=== PATIENT | male | born 1965 | race Caucasian/White ===

== ENCOUNTER 2023-03-05 10:37 | Observation (INO) | payer OTHER, SELFPAY ==
[2023-03-05] VITALS (12 sets, daily range): BP systolic 90–115; BP diastolic 53–85; PULSE 60–81; RESP 17–21; TEMP 35.9–37.1; O2SAT 93–96; BMI 31.0; BMI 31.2
--- NOTE | ~2023-03-05 | CT_ITS ---
EXAMINATION: CT CHEST, ABDOMEN AND PELVIS WITHOUT CONTRAST CLINICAL INFORMATION: Status post fall with chest pain and abdominal pain. COMPARISON: Chest radiographs 03/05/2023 TECHNIQUE: Multidetector volumetric imaging was performed of the chest, abdomen and pelvis. Sagittal and coronal reformatted images were obtained on the technologist's workstation. This CT examination was performed using dose optimization techniques as appropriate, variously including the following: *Automated exposure control *Adjustment of mA and/or kV according to patient size (this includes techniques or standardized protocols for targeted exams where dose is matched to indication/reason for exam; i.e. extremities or head) *Use of iterative reconstruction technique DLP: 427 mGy-cm FINDINGS: CHEST: CHEST WALL: No acute abnormality. AXILLA: No axillary lymphadenopathy. MEDIASTINUM: Enlarged heterogeneous thyroid gland. No bulky hilar or mediastinal lymphadenopathy. Great vessels are of normal caliber. Heart size is normal. No pericardial effusion. CORONARY ARTERY CALCIFICATION: Moderate. PLEURA: Small right pleural effusion. No pneumothorax. LUNGS: No suspicious pulmonary nodule. Mild diffuse bronchiectasis and bronchial wall thickening. Scarring versus atelectasis in the right lower lobe and right middle lobe. ABDOMEN AND PELVIS: ABDOMINAL AND PELVIC WALL: No acute abnormality. LIVER AND BILIARY TREE: The liver is diffusely decreased in attenuation. The liver measures 21.1 cm in sagittal dimension. No focal hepatic lesion. No biliary duct dilatation. GALLBLADDER: Gallstones. PANCREAS: No ductal dilatation. SPLEEN: Not enlarged. ADRENAL GLANDS: 1.6 cm left adrenal nodules most likely representing adenomas. KIDNEYS AND URETERS: The kidneys are symmetric in size. No renal or ureteral calculus. No hydronephrosis. GASTROINTESTINAL TRACT: Small and large bowel loops are of normal caliber. No small bowel obstruction. Diverticular disease of the sigmoid colon. VASCULAR: Normal caliber abdominal aorta. LYMPH NODES: No bulky abdominal or pelvic lymphadenopathy. FREE FLUID: No free fluid. BLADDER: Unremarkable. PELVIC VISCERA: Unremarkable. OSSEOUS STRUCTURES: Anterior wedging of lower thoracic spine vertebral bodies. CT/CT abdomen pelvis wo IV con IMPRESSION: Right middle lobe and right lower lobe scarring versus atelectasis. No pneumothorax. Small right pleural effusion. Hepatomegaly and hepatic steatosis. Left adrenal adenomas. Cholelithiasis.
--- NOTE | ~2023-03-05 | CT_ITS ---
EXAMINATION: CT HEAD WITHOUT CONTRAST CLINICAL INFORMATION: Syncope. COMPARISON: None available. TECHNIQUE: Contiguous axial imaging was performed from the skull base to vertex without intravenous administration of contrast. This CT examination was performed using dose optimization techniques as appropriate, variously including the following: *Automated exposure control *Adjustment of mA and/or kV according to patient size (this includes techniques or standardized protocols for targeted exams where dose is matched to indication/reason for exam; i.e. extremities or head) *Use of iterative reconstruction technique DLP: 794 mGy-cm FINDINGS: There is no evidence of acute intracranial hemorrhage or large territorial infarction. No mass effect or midline shift is seen. No extra-axial fluid collections are identified. No hydrocephalus. The calvarium is intact. Under pneumatization of the right mastoid. Air-fluid level in the right maxillary sinus. Right maxillary sinus mucosal thickening. Mucoperiosteal thickening of the ethmoid air cells. CT/CT head/brain wo IV con IMPRESSION: No acute intracranial pathology. Acute right maxillary sinusitis.
--- NOTE | ~2023-03-05 | XR_ITS ---
EXAMINATION: XR CHEST CLINICAL INFORMATION: Syncope. COMPARISON: 06/30/2006 TECHNIQUE: 2 views of the chest were obtained. FINDINGS: The left hemithorax is clear. There is scarring versus atelectasis at the right lung base. There is increased lucency at the right lung base with small right pleural effusion. XR/XR chest 2V IMPRESSION: Possible small right basilar hydropneumothorax. Consider noncontrast chest CT for further evaluation.
[2023-03-05 10:47] LABS: Glucose, Whole Blood 177 mg/dL (60-115)
--- NOTE | 2023-03-05 10:48 | ECG_ITS ---
Test Reason : syncope Blood Pressure : / mmHG Vent. Rate : 080 BPM Atrial Rate : 080 BPM P-R Int : 130 ms QRS Dur : 104 ms QT Int : 376 ms P-R-T Axes : 039 071 072 degrees QTc Int : 433 ms Normal sinus rhythm Normal ECG No previous ECGs available Referred By: Generic ED Physician Electronically Signed By:Dany Dunne
[2023-03-05 11:06] LABS: MANUAL DIFF FLAG NO
[2023-03-05 11:08] LABS: Basophils Absolute Auto 0.1 X10*3/uL (0.0-0.2); Basophils Percent Auto 1.2 % (0-2); Eosinophils Percent Auto 0.1 % (0-4); Hematocrit 42.8 % (42.0-52.0); Imm Gran Abs Auto 0.01 X10*3/uL (0.00-0.03); Imm Gran Pct Auto 0.1 % (0.0-0.4); Lymphocytes Absolute Auto 0.6 X10*3/uL (1.2-4.9); Lymphocytes Percent Auto 8.9 % (20-40); Mean Corpuscular HGB Conc 32.7 g/dl (31.0-36.0); Mean Corpuscular Hemoglobin 28.2 pg (27.0-33.0); Mean Corpuscular Volume 86.3 fL (80.0-98.0); Monocytes Absolute Auto 0.7 X10*3/uL (0.1-1.2); Monocytes Percent Auto 9.8 % (2-11); Neutrophils Absolute Auto 5.4 x10*3/uL (2.0-8.3); Neutrophils Percent Auto 79.9 % (45-73); Platelet Count 237 X10*3/uL (160-400); Red Blood Count 4.96 X10*6/uL (4.60-5.80); Red Cell Distribution Width 13.6 % (11.0-16.0); White Blood Count 6.7 X10*3/uL (4.8-10.8)
[2023-03-05 11:20] LABS: Anion Gap 15 (12-20); Blood Urea Nitrogen 33 mg/dL (9-16); Carbon Dioxide 19 mmol/L (22-29); Chloride 102 mmol/L (96-108); Creatinine Clr Calc Pharmacy 53.7; Estimated Glomerular Filt Rate 38; Glucose Random 178 mg/dL (60-115); Potassium 3.7 mmol/L (3.3-5.1); Sodium 132 mmol/L (135-145)
[2023-03-05 11:29] LABS: Troponin-I High Sensitivity 8.1 ng/L (<3.5-35.0)
--- NOTE | 2023-03-05 11:52 | ED_ITS ---
HPI - General Adult General Chief complaint: Syncope Stated complaint: syncope Time Seen by Provider: 03/05/23 11:51 Source: patient Mode of arrival: ambulatory Limitations: no limitations History of Present Illness HPI narrative: Patient is a 58 year old assigned male at with a history of asthma and diabetes presenting to the emergency department today with back pain after multiple syncopal episodes. Patient states that he passed out multiple times over the course of approximately 1 hour this morning. Patient states that he does not remember each time he fell but he knows he hit his head. Patient states that this has never happened before. Patient states that his landlord has COVID- 19 and he has been around his landlord.. Patient denies any dizziness, lightheadedness, abdominal pain, nausea, vomiting, fever, chills, blurry vision, double vision, loss of vision, chest pain, difficulty breathing, shortness of breath, back pain, night sweats, pain with urination, increased urinary frequency, increased urinary urgency, blood in his urine or stool, bowel incontinence, bladder incontinence, bowel retention, bladder retention, or any other complaints at this time. Onset (ago): hour(s) Location: back Radiation: non-radiation Severity: mild Severity scale (1-10): 3 Quality: aching and constant Pain Consistency: constant Relieving factors: rest Exacerbating factors: movement Associated symptoms: syncope Treatments prior to arrival: none Related Data Home Medications Medication Instructions Recorded Confirmed albuterol sulfate 90 mcg/actuation 2 puff inhalation Q4H PRN 03/05/23 03/05/23 aerosol inhaler Shortness Of Breath Or Wheezing amlodipine 5 mg tablet 5 mg PO DAILY@0 03/05/23 03/05/23 chlorthalidone 25 mg tablet 25 mg PO DAILY 03/05/23 03/05/23 fluticasone propionate 50 1 spray intranasal DAILY PRN 03/05/23 03/05/23 mcg/actuation nasal Allergy Symptoms spray,suspension lisinopril 20 mg tablet 20 mg PO DAILY@0 03/05/23 03/05/23 melatonin 10 mg tablet 10 mg PO BEDTIME 03/05/23 03/05/23 metformin 500 mg tablet,extended 1,000 mg PO BID 03/05/23 03/05/23 release 24 hr Allergies Allergy/AdvReac Type Severity Reaction Status Date / Time perfume AdvReac Hives Verified 03/05/23 10:39 Review of Systems Constitutional: Constitutional: Reports no additional constitutional complaints, Denies chills, Denies fever(s) and Denies night sweats Eyes: Eyes: Reports no additional eye complaints, Denies blurry vision, Denies change in vision, Denies diplopia, Denies eye discharge, Denies loss of vision and Denies eye pain ENT: Reports dizziness Cardiovascular: Cardiovascular: Reports no additional cardiovascular complaints, Denies chest pain, Reports syncope, Denies lightheadedness, Denies Loss of Consciousness and Denies dyspnea Respiratory: Respiratory: Reports cough and Denies dyspnea Gastrointestinal: Gastrointestinal: Reports no additional gastrointestinal complaints, Denies abdominal pain, Denies melena, Denies hematochezia, Denies c hange in bowel habits and Denies change in stool character Genitourinary: Genitourinary: Reports no additional male genitourinary complaints, Denies hematuria, Denies oliguria, Denies difficulty urinating, Denies dysuria, Denies urinary frequency, Denies urinary hesitancy, Denies urinary incontinence and Denies urinary urgency Musculoskeletal: Musculoskeletal: Reports no additional musculoskeletal complaints, Reports back pain, Denies numbness and Denies tingling Neurologic: Reports dizziness, Reports syncope, Denies loss of vision, Denies numbness and Denies tingling Psychiatric: Psychiatric: Reports no additional psychiatric complaints Endocrine: Endocrine: Reports no additional endocrine complaints Hematologic/Lymphatic: Hematologic/Lymphatic: Reports no additional hematologic/lymphatic complaints Allergic/Immunologic: Allergic/Immunologic: Reports no additional allergic/immunologic complaints [facility] Past Medical History Attestation statement: The following information was validated with the patient. Source: old records reviewed and nursing notes reviewed Medical History Asthma Diabetes Social History Social History Smoked in Last 30 Days: Yes Use of substances other than those prescribed or required for medical reasons: No Advance Directives: No Physical Exam ED Vital Signs: Vital Signs - 24 hr 03/05/23 10:40 03/05/23 12:04 03/05/23 12:54 Temperature 96.6 F L 98.4 F Pulse Rate 81 73 Respiratory Rate 18 17 Blood Pressure 101/53 L 115/61 Pulse Oximetry 95 94 93 Oxygen Delivery Method Room Air Room Air Room Air 03/05/23 14:17 03/05/23 14:49 03/05/23 14:50 Temperature Pulse Rate 70 61 61 Respiratory Rate 21 H Blood Pressure 90/56 L 91/56 L 97/59 L Pulse Oximetry 95 Oxygen Delivery Method Room Air 03/05/23 14:51 03/05/23 14:53 03/05/23 15:36 Temperature Pulse Rate 77 61 Respiratory Rate 19 Blood Pressure 94/58 L 91/56 L 105/85 Pulse Oximetry 96 Oxygen Delivery Method Room Air BMI result Body Mass Index 31.0 Const General: cooperative, no acute distress, alert and awake Nutritional Appearance: well nourished Orientation/consciousness: patient oriented x3 Limitations: no limitations HENMT Head: Yes normal to inspection and Yes atraumatic Ears: hearing grossly normal bilaterally and external ears normal General nose exam: Normal external nose present, no nasal discharge noted and no epistaxis Face and sinus: Yes normal facial exam, No abrasion and No laceration Mouth: Normal oral and palatal mucosa present, no drooling and no muffled voice Eyes General: appearance normal, both eyes and all related structures Periorbital: periorbital findings normal Eyelids: Yes eyelids normal Conjunctivae: conjunctivae normal Pupils: Equal, round and reactive pupils present EOM: EOMs intact bilaterally Neck Neck: Yes normal visual inspection, Yes full ROM and Yes no lymphadenopathy Chest Chest palpation & inspection: normal inspection of the chest Resp Effort & Inspection: normal respiratory effort and able to speak in complete sentences Auscultation: clear to auscultation bilaterally Cardio Rate: regular rate Rhythm: regular rhythm GI Inspection: Yes normal to inspection Palpation (GI): Soft to palpation, not firm, nontender and no guarding Back/Spine/Pelvis Back: back tenderness Cervical Spine: cervical ROM normal and No pain with cervical ROM Thoracic/Lumbar Spine: thoracic and lumbar spine normal to inspection and paraspinal muscle tenderness bilaterally in the mid thoracic Skin Lesions: lesion noted Trauma: abrasion (right 3rd finger, right elbow and top of head) Neuro General: patient oriented x3 and moves all extremities Cranial nerves: Yes Equal, round and reactive pupils present Cognition (Neuro): normal cognition Motor exam (neuro): 5/5 motor strength present throughout Sensory Exam: Normal double simultaneous stimulation for sensation Coordination: [id number] test normal Extrem General: Yes normal to inspection, Yes full ROM and Yes capillary refill normal Psych Appearance: grossly normal Mental Status: mental status grossly normal Affect: normal affect Attitude: cooperative Thought process: Normal thought process present Thought content: Normal thought content present Insight: Good insight present (Psych) Medications Administered Discontinued Medications Generic Name Dose Route Start Last Admin Trade Name Deric PRN Reason Stop Dose Admin Acetaminophen 650 mg 03/05/23 13:01 03/05/23 13:36 Acetaminophen 325 Mg Tablet PO 03/05/23 13:02 650 mg ONCE ONE Administration Sodium Chloride 1,000 mls @ 999 mls/hr 03/05/23 14:45 03/05/23 15:47 Ns IV 03/05/23 15:45 Infused .Q1H1M HEATHER Infusion Medical Decision Making Medical Decision Making [facility] Narrative: Patient is a 58 year old assigned male at with a history of asthma and diabetes presenting to the emergency department today with back pain after multiple syncopal episodes. Patient's physical exam was as noted in the physical exam portion of this chart. Patient's blood work showed a sodium of 132, BUN 33, and a CR of 1.82. The rest of the patient's lab results are grossly normal. Patient's EKG was unremarkable. Patient's chest x-ray showed a possible small right basilar hydropneumothorax. Radiologist recommended CT chest. CT chest showed no acute process. Patient's CT abdomen/pelvis showed no acute process. Patient's head CT showed evidence of sinusitis, patient confirmed that he is aware of this and uses nasal spray. I spoke to the hospitalist who agreed to admission. Patient was given IV fluids while in the department. I explained my physical exam findings as well as all test results to the patient. I answered all questions asked by the patient. Patient verbalized agreement and understanding with this treatment plan and admission. Differential Diagnosis Differential Diagnoses: The differential diagnosis associated with the presentation includes Orthostatic hypotension STEMI NSTEMI Syncope Back pain Fall Acute kidney injury Electrolyte abnormality Arrhythmia Admission/Observation Consideration of admission/observation: Escalation of care including admission/observation considered Patient admitted. Consult Healthcare Provider Management of the patient was discussed with: Hospitalist (agreed to admission.) Lab Data [facility] Lab Attestation statement: I reviewed the patient's lab results. My interpretation of these results are in the MDM portion of this chart. 03/05/23 10:58 03/05/23 10:58 Labs: Lab Results 03/05/23 03/05/23 03/05/23 Range/Units 10:43 10:58 10:58 WBC 6.7 (4.8-10.8) X10*3/uL RBC 4.96 (4.60-5.80) X10*6/uL Hgb 14.0 (14.0-18.0) g/dl Hct 42.8 (42.0-52.0) % MCV 86.3 (80.0-98.0) fL MCH 28.2 (27.0-33.0) pg MCHC 32.7 (31.0-36.0) g/dl RDW 13.6 (11.0-16.0) % Plt Count 237 (160-400) X10*3/uL MPV 11.0 (9.4-12.4) fL Immature Gran % (Auto) 0.1 (0.0-0.4) % Neut % (Auto) 79.9 H (45-73) % Lymph % (Auto) 8.9 L (20-40) % [place] % (Auto) 9.8 (2-11) % Eos % (Auto) 0.1 (0-4) % Baso % (Auto) 1.2 (0-2) % Lymph # (Auto) 0.6 L (1.2-4.9) X10*3/uL [place] # (Auto) 0.7 (0.1-1.2) X10*3/uL Eos # (Auto) 0.0 (0.0-0.4) X10*3/uL Baso # (Auto) 0.1 (0.0-0.2) X10*3/uL Abs Immat Gran (auto) 0.01 (0.00-0.03) X10*3/uL Absolute Neuts (auto) 5.4 (2.0-8.3) x10*3/uL Absolute Nucleated RBC 0.000 (0.0-0.012) X10*3/uL Nucleated RBC % (auto) 0.0 (0.0-0.2) /100WBC Sodium 132 L (135-145) mmol/L Potassium 3.7 (3.3-5.1) mmol/L Chloride 102 (96-108) mmol/L Carbon Dioxide 19 L (22-29) mmol/L Anion Gap 15 (12-20) BUN 33 H (9-16) mg/dL Creatinine 1.82 H (0.5-1.4) mg/dL Estim Creat Clear Calc 53.7 Estimated GFR 38 POC Glucose 177 H (60-115) mg/dL Random Glucose 178 H (60-115) mg/dL Calcium 9.0 (8.4-10.2) mg/dL Magnesium 1.9 (1.6-2.6) mg/dL Total Bilirubin 0.4 (0.0-1.0) mg/dL Direct Bilirubin 0.2 (0.0-0.5) mg/dL AST 29 (5-37) U/L ALT 29 (0-40) U/L Alkaline Phosphatase 69 (39-117) U/L Troponin I High Sens (<3.5-35.0) ng/L B-Natriuretic Peptide (<100) pg/mL Total Protein 7.2 (6.5-8.0) g/dL Albumin 3.9 (3.5-5.0) g/dL COVID-19 (JIMI) (Negative) COVID-19 Clin Com 03/05/23 03/05/23 03/05/23 Range/Units 10:58 10:58 13:08 WBC (4.8-10.8) X10*3/uL RBC (4.60-5.80) X10*6/uL Hgb (14.0-18.0) g/dl Hct (42.0-52.0) % MCV (80.0-98.0) fL MCH (27.0-33.0) pg MCHC (31.0-36.0) g/dl RDW (11.0-16.0) % Plt Count (160-400) X10*3/uL MPV (9.4-12.4) fL Immature Gran % (Auto) (0.0-0.4) % Neut % (Auto) (45-73) % Lymph % (Auto) (20-40) % [place] % (Auto) (2-11) % Eos % (Auto) (0-4) % Baso % (Auto) (0-2) % Lymph # (Auto) (1.2-4.9) X10*3/uL [place] # (Auto) (0.1-1.2) X10*3/uL Eos # (Auto) (0.0-0.4) X10*3/uL Baso # (Auto) (0.0-0.2) X10*3/uL Abs Immat Gran (auto) (0.00-0.03) X10*3/uL Absolute Neuts (auto) (2.0-8.3) x10*3/uL Absolute Nucleated RBC (0.0-0.012) X10*3/uL Nucleated RBC % (auto) (0.0-0.2) /100WBC Sodium (135-145) mmol/L Potassium (3.3-5.1) mmol/L Chloride (96-108) mmol/L Carbon Dioxide (22-29) mmol/L Anion Gap (12-20) BUN (9-16) mg/dL Creatinine (0.5-1.4) mg/dL Estim Creat Clear Calc Estimated GFR POC Glucose (60-115) mg/dL Random Glucose (60-115) mg/dL Calcium (8.4-10.2) mg/dL Magnesium (1.6-2.6) mg/dL Total Bilirubin (0.0-1.0) mg/dL Direct Bilirubin (0.0-0.5) mg/dL AST (5-37) U/L ALT (0-40) U/L Alkaline Phosphatase (39-117) U/L Troponin I High Sens 8.1 9.1 (<3.5-35.0) ng/L B-Natriuretic Peptide (<100) pg/mL Total Protein (6.5-8.0) g/dL Albumin (3.5-5.0) g/dL COVID-19 (JIMI) Negative (Negative) COVID-19 Clin Com See Note 03/05/23 Range/Units 13:08 WBC (4.8-10.8) X10*3/uL RBC (4.60-5.80) X10*6/uL Hgb (14.0-18.0) g/dl Hct (42.0-52.0) % MCV (80.0-98.0) fL MCH (27.0-33.0) pg MCHC (31.0-36.0) g/dl RDW (11.0-16.0) % Plt Count (160-400) X10*3/uL MPV (9.4-12.4) fL Immature Gran % (Auto) (0.0-0.4) % Neut % (Auto) (45-73) % Lymph % (Auto) (20-40) % [place] % (Auto) (2-11) % Eos % (Auto) (0-4) % Baso % (Auto) (0-2) % Lymph # (Auto) (1.2-4.9) X10*3/uL [place] # (Auto) (0.1-1.2) X10*3/uL Eos # (Auto) (0.0-0.4) X10*3/uL Baso # (Auto) (0.0-0.2) X10*3/uL Abs Immat Gran (auto) (0.00-0.03) X10*3/uL Absolute Neuts (auto) (2.0-8.3) x10*3/uL Absolute Nucleated RBC (0.0-0.012) X10*3/uL Nucleated RBC % (auto) (0.0-0.2) /100WBC Sodium (135-145) mmol/L Potassium (3.3-5.1) mmol/L Chloride (96-108) mmol/L Carbon Dioxide (22-29) mmol/L Anion Gap (12-20) BUN (9-16) mg/dL Creatinine (0.5-1.4) mg/dL Estim Creat Clear Calc Estimated GFR POC Glucose (60-115) mg/dL Random Glucose (60-115) mg/dL Calcium (8.4-10.2) mg/dL Magnesium (1.6-2.6) mg/dL Total Bilirubin (0.0-1.0) mg/dL Direct Bilirubin (0.0-0.5) mg/dL AST (5-37) U/L ALT (0-40) U/L Alkaline Phosphatase (39-117) U/L Troponin I High Sens (<3.5-35.0) ng/L B-Natriuretic Peptide 55 (<100) pg/mL Total Protein (6.5-8.0) g/dL Albumin (3.5-5.0) g/dL COVID-19 (JIMI) (Negative) COVID-19 Clin Com Independent Interpretation I performed an independent interpretation of an: EKG, Plain X-Ray and CT Scan Interpretation: My interpretation is in agreement with the radiologist's impression of these imaging studies. EXAMINATION: XR CHEST CLINICAL INFORMATION: Syncope. COMPARISON: 06/30/2006 TECHNIQUE: 2 views of the chest were obtained. FINDINGS: The left hemithorax is clear. There is scarring versus atelectasis at the right lung base. There is increased lucency at the right lung base with small right pleural effusion. XR/XR chest 2V IMPRESSION: Possible small right basilar hydropneumothorax. Consider noncontrast chest CT for further evaluation. Dictated By: Carmen Chow MD Signed By: Electronically signed by Carmen Chow MD 03/05/23 1253 EXAMINATION: CT HEAD WITHOUT CONTRAST CLINICAL INFORMATION: Syncope.? COMPARISON: None available. TECHNIQUE: Contiguous axial imaging was performed from the skull base to vertex without intravenous administration of contrast. This CT examination was performed using dose optimization techniques as appropriate, variously including the following: *Automated exposure control *Adjustment of mA and/or kV according to patient size (this includes techniques or standardized protocols for targeted exams where dose is matched to indication/reason for exam; i.e. extremities or head) *Use of iterative reconstruction technique DLP: 794 mGy-cm FINDINGS: There is no evidence of acute intracranial hemorrhage or large territorial infarction. No mass effect or midline shift is seen. No extra-axial fluid collections are identified. No hydrocephalus. The calvarium is intact. Under pneumatization of the right mastoid. Air-fluid level in the right maxillary sinus. Right maxillary sinus mucosal thickening. Mucoperiosteal thickening of the ethmoid air cells. ? CT/CT head/brain wo IV con IMPRESSION: No acute intracranial pathology. Acute right maxillary sinusitis. Dictated By: Carmen Chow MD Signed By: Electronically signed by Carmen Chow MD 03/05/23 1302 EXAMINATION: CT CHEST, ABDOMEN AND PELVIS WITHOUT CONTRAST CLINICAL INFORMATION: Status post fall with chest pain and abdominal pain. COMPARISON: Chest radiographs 03/05/2023 TECHNIQUE: Multidetector volumetric imaging was performed of the chest, abdomen and pelvis. Sagittal and coronal reformatted images were obtained on the technologist's workstation. This CT examination was performed using dose optimization techniques as appropriate, variously including the following: *Automated exposure control *Adjustment of mA and/or kV according to patient size (this includes techniques or standardized protocols for targeted exams where dose is matched to indication/reason for exam; i.e. extremities or head) *Use of iterative reconstruction technique DLP: 427 mGy-cm FINDINGS: CHEST: CHEST WALL: No acute abnormality. AXILLA: No axillary lymphadenopathy.? MEDIASTINUM: Enlarged heterogeneous thyroid gland. No bulky hilar or mediastinal lymphadenopathy. Great vessels are of normal caliber. Heart size is normal. No pericardial effusion. CORONARY ARTERY CALCIFICATION: Moderate. PLEURA: Small right pleural effusion. No pneumothorax. LUNGS: No suspicious pulmonary nodule. Mild diffuse bronchiectasis and bronchial wall thickening. Scarring versus atelectasis in the right lower lobe and right middle lobe. ABDOMEN AND PELVIS: ABDOMINAL AND PELVIC WALL: No acute abnormality. LIVER AND BILIARY TREE: The liver is diffusely decreased in attenuation. The liver measures 21.1 cm in sagittal dimension. No focal hepatic lesion. No biliary duct dilatation.? GALLBLADDER: Gallstones. PANCREAS: No ductal dilatation. SPLEEN: Not enlarged. ADRENAL GLANDS: 1.6 cm left adrenal nodules most likely representing adenomas. KIDNEYS AND URETERS: The kidneys are symmetric in size. No renal or ureteral calculus. No hydronephrosis. GASTROINTESTINAL TRACT: Small and large bowel loops are of normal caliber. No small bowel obstruction. Diverticular disease of the sigmoid colon. VASCULAR: Normal caliber abdominal aorta. LYMPH NODES: No bulky abdominal or pelvic lymphadenopathy. FREE FLUID: No free fluid. BLADDER: Unremarkable.? PELVIC VISCERA: Unremarkable. OSSEOUS STRUCTURES: Anterior wedging of lower thoracic spine vertebral bodies. CT/CT abdomen pelvis wo IV con IMPRESSION: ? Right middle lobe and right lower lobe scarring versus atelectasis. No pneumothorax. Small right pleural effusion. ? Hepatomegaly and hepatic steatosis. ? Left adrenal adenomas. ? Cholelithiasis. Dictated By: Carmen Chow MD Signed By: Electronically signed by Carmen Chow MD 03/05/23 1428 Vent. Rate: 080 BPM ? ? Atrial Rate: 080 BPM P-R Int: 130 ms? QRS Dur: 104 ms QT Int: 376 ms ? ? ? P-R-T Axes: 039 071 072 degrees QTc Int: 433 ms ? Normal sinus rhythm Normal ECG No previous ECGs available DD/ 1045 Radiology Impression Discussion of test interpretation with radiology: I have reviewed the radiologist's reading. Chronic Conditions Patient?s care impacted by: Diabetes and Other (asthma) Critical Care Time Critical Care Time Critical Care Time: Yes Total Critical Care Time: 45 Attestation: I spent 45 minutes of Critical Care Time with this patient. This does not include time spent on separately reported billable procedures. Discharge Plan Discharge Patient Disposition: Admitted As Inpatient Prescriptions: No Action lisinopril 20 mg tablet 20 mg PO DAILY@1700 chlorthalidone 25 mg tablet 25 mg PO DAILY amlodipine 5 mg tablet 5 mg PO DAILY@1700 albuterol sulfate 90 mcg/actuation HFA aerosol inhaler 2 puff inhalation Q4H PRN (Reason: Shortness Of Breath Or Wheezing) fluticasone propionate 50 mcg/actuation spray,suspension 1 spray intranasal DAILY PRN (Reason: Allergy Symptoms) metformin 500 mg tablet extended release 24 hr 1,000 mg PO BID melatonin 10 mg Tablet 10 mg PO BEDTIME
[2023-03-05 12:05] LABS: COVID-19 Test Negative (Negative); IDNOW Serial# BCCEAD1C
--- NOTE | 2023-03-05 13:16 | PC.NURSE ---
Addendum entered by Ton Urbano 03/05/23 13:59: lung sounds clear to auscultation; sats 98% RA. no bruising/abrasions noted upon exam. Original Note: pt axox4, VSS, respirations even and unlabored, NSR on monitor 76 bpm, sats 93-95% RA. pt here for 4x episodes syncope today onset 1000; witnessed by friend; denies headstrike; c/o dizziness and mid back pain following syncope episodes. labs drawn; iv established; awaiting imaging. pt denies questions/concerns at this time, call golden within reach.
[2023-03-05] MEDS: Acetaminophen 325 MG TABLET 650 MG PO (13:36)
[2023-03-05 13:38] LABS: B Type Natriuretic Peptide 55 pg/mL (<100)
[2023-03-05 13:50] LABS: Alanine Aminotransferase 29 U/L (0-40); Albumin Level 3.9 g/dL (3.5-5.0); Alkaline Phosphatase 69 U/L (39-117); Aspartate Amino Transferase 29 U/L (5-37); Bilirubin Direct 0.2 mg/dL (0.0-0.5); Bilirubin Total 0.4 mg/dL (0.0-1.0); Magnesium 1.9 mg/dL (1.6-2.6); Total Protein 7.2 g/dL (6.5-8.0)
[2023-03-05 13:58] LABS: Troponin-I High Sensitivity 9.1 ng/L (<3.5-35.0)
[2023-03-05] MEDS: 0.9 % Sodium Chloride 1,000 ML 999 ML IV (14:46)
--- NOTE | 2023-03-05 15:10 | PHA.MEDREC ---
Pharmacy Consult ? Medication Reconciliation Pharmacy has completed the medication reconciliation. Spoke to patient to confirm meds.
--- NOTE | 2023-03-05 15:35 | PC.NURSE ---
pt noted to be hypotensive; asymptomatic; pierce downey aware. new order fluids infusing. bp improving.
--- NOTE | 2023-03-05 15:58 | PM.IMHP ---
History of Present Illness Date of Service: 03/05/23 Chief Complaint: Syncope 58M PMH hypertension, obesity, COPD, diabetes presented with syncope. 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 Patient denies chest pain, fever, chills. Review of Systems Review of Systems: Yes all other systems are reviewed and are negative [facility], [facility] Medical History Asthma Diabetes Social History Smoked in Last 30 Days: Yes Use of substances other than those prescribed or required for medical reasons: No Advance Directives: No Meds Allergies Allergy/AdvReac Type Severity Reaction Status Date / Time perfume AdvReac Hives Verified 03/05/23 10:39 Active Medications: Current Medications Albuterol Sulfate (Albuterol Sulfate 90 Mcg 8 Gm Inhaler) 2 puff INHALE Q4H PRN PRN Reason: Shortness Of Breath Or Wheezing Lactated Ringer's (Lr) 1,000 mls @ 100 mls/hr IVCONT .Q10H [facility] Non-Formulary Medication (Melatonin) 10 mg PO BEDTIME [facility] Pharmacy Consult (Consult Rx Perform Med Rec) 1 each MISCELLANE ONCE PRN PRN Reason: Consult order Home Medications Medication Instructions Recorded Confirmed Last Taken Type albuterol sulfate 90 mcg/actuation 2 puff inhalation Q4H PRN 03/05/23 03/05/23 Unknown History aerosol inhaler Shortness Of Breath Or Wheezing amlodipine 5 mg tablet 5 mg PO DAILY@1700 03/05/23 03/05/23 03/04/23 History chlorthalidone 25 mg tablet 25 mg PO DAILY 03/05/23 03/05/23 03/05/23 09:00 History fluticasone propionate 50 1 spray intranasal DAILY PRN 03/05/23 03/05/23 Unknown History mcg/actuation nasal Allergy Symptoms spray,suspension lisinopril 20 mg tablet 20 mg PO DAILY@1700 03/05/23 03/05/23 03/04/23 History melatonin 10 mg tablet 10 mg PO BEDTIME 03/05/23 03/05/23 03/04/23 History metformin 500 mg tablet,extended 1,000 mg PO BID 03/05/23 03/05/23 03/05/23 09:00 History release 24 hr Physical Exam Vital Signs and Narrative: Vital Signs: Last Vital Signs Temp 98.4 F 03/05/23 12:04 Pulse 61 03/05/23 14:53 Resp 19 03/05/23 14:53 BP 105/85 03/05/23 15:36 Pulse Ox 96 03/05/23 14:53 O2 Del Method Room Air 03/05/23 14:53 BMI result Body Mass Index 31.0 General: AO X 3, no acute distress Resp: CTA bilateral, no accessory muscles used CVS: S1,S2,RRR GI: soft, non tender, non distended Neuro: motor grossly intact, alert Psych: appropriate affect, appropriate insight Results Labs 03/05/23 10:58 03/05/23 10:58 Labs: Laboratory Results - last 24 hr 03/05/23 03/05/23 03/05/23 10:43 10:58 10:58 MCV 86.3 MCH 28.2 MCHC 32.7 RDW 13.6 Plt Count 237 MPV 11.0 Immature Gran % (Auto) 0.1 Neut % (Auto) 79.9 H Lymph % (Auto) 8.9 L [place] % (Auto) 9.8 Eos % (Auto) 0.1 Baso % (Auto) 1.2 Lymph # (Auto) 0.6 L [place] # (Auto) 0.7 Eos # (Auto) 0.0 Baso # (Auto) 0.1 Abs Immat Gran (auto) 0.01 Absolute Neuts (auto) 5.4 Absolute Nucleated RBC 0.000 Nucleated RBC % (auto) 0.0 Anion Gap 15 Estim Creat Clear Calc 53.7 Estimated GFR 38 POC Glucose 177 H Random Glucose 178 H Calcium 9.0 Magnesium 1.9 Total Bilirubin 0.4 Direct Bilirubin 0.2 AST 29 ALT 29 Alkaline Phosphatase 69 Troponin I High Sens B-Natriuretic Peptide Total Protein 7.2 Albumin 3.9 COVID-19 (JIMI) COVID-19 Clin Com 03/05/23 03/05/23 03/05/23 10:58 10:58 13:08 MCV MCH MCHC RDW Plt Count MPV Immature Gran % (Auto) Neut % (Auto) Lymph % (Auto) [place] % (Auto) Eos % (Auto) Baso % (Auto) Lymph # (Auto) [place] # (Auto) Eos # (Auto) Baso # (Auto) Abs Immat Gran (auto) Absolute Neuts (auto) Absolute Nucleated RBC Nucleated RBC % (auto) Anion Gap Estim Creat Clear Calc Estimated GFR POC Glucose Random Glucose Calcium Magnesium Total Bilirubin Direct Bilirubin AST ALT Alkaline Phosphatase Troponin I High Sens 8.1 9.1 B-Natriuretic Peptide Total Protein Albumin COVID-19 (JIMI) Negative COVID-19 Clin Com See Note 03/05/23 13:08 MCV MCH MCHC RDW Plt Count MPV Immature Gran % (Auto) Neut % (Auto) Lymph % (Auto) [place] % (Auto) Eos % (Auto) Baso % (Auto) Lymph # (Auto) [place] # (Auto) Eos # (Auto) Baso # (Auto) Abs Immat Gran (auto) Absolute Neuts (auto) Absolute Nucleated RBC Nucleated RBC % (auto) Anion Gap Estim Creat Clear Calc Estimated GFR POC Glucose Random Glucose Calcium Magnesium Total Bilirubin Direct Bilirubin AST ALT Alkaline Phosphatase Troponin I High Sens B-Natriuretic Peptide 55 Total Protein Albumin COVID-19 (JIMI) COVID-19 Clin Com Imaging Radiologist's Impressions: Impressions Chest X-Ray 03/05/23 12:03 IMPRESSION: Possible small right basilar hydropneumothorax. Consider noncontrast chest CT for further evaluation. Head CT 03/05/23 12:20 IMPRESSION: No acute intracranial pathology. Acute right maxillary sinusitis. Abdomen/Pelvis CT 03/05/23 13:56 IMPRESSION: Right middle lobe and right lower lobe scarring versus atelectasis. No pneumothorax. Small right pleural effusion. Hepatomegaly and hepatic steatosis. Left adrenal adenomas. Cholelithiasis. Chest CT 03/05/23 13:56 IMPRESSION: Right middle lobe and right lower lobe scarring versus atelectasis. No pneumothorax. Small right pleural effusion. Hepatomegaly and hepatic steatosis. Left adrenal adenomas. Cholelithiasis. Assessment and Plan (1) Diabetes: Status: Acute Plan 58M PMH hypertension, obesity, COPD, diabetes presented with syncope Syncope Placed on observation under telemetry Likely due to dehydration, orthostatic hypotension Hold antihypertensives IV fluids Check orthostatics Elevated creatinine Unclear baseline Monitor BMP Obesity Weight loss recommended COPD Smoking cessation, albuterol as needed Right lung small atelectasis Outpatient follow-up Consider repeat CT chest in 3 months Diabetes Hold metformin while inpatient Insulin sliding scale DVT prophylaxis with Lovenox Full code Time Spent With Patient Time: Total time managing care of this patient today ____ minutes. Quality Stroke Does the patient have a stroke diagnosis?: No VTE Prior VTE?: No VTE Risk Level:: Medical - moderate - high VTE Device Contraindication: Treatment Not Indicated VTE Drug Contraindication: N/A - Med Ordered
[2023-03-05 16:41] LABS: INTERNATIONAL NORM RATIO 0.9 (0.9-1.1); Prothrombin Time 10.7 SEC (10.0-13.1)
[2023-03-05 16:43] LABS: D Dimer High Sensitivity 611 NG/ML; Partial Thromboplastin Time 31.3 SEC (26.0-36.4)
[2023-03-05] MEDS: 0.9 % Sodium Chloride Flush 3 ML SYRINGE IVFLUSH ×2 (16:49→22:22)
[2023-03-05] MEDS: Lactated Ringers 1,000 ML 100 ML IVCONT (16:49)
[2023-03-05 17:02] LABS: Glucose, Whole Blood 122 mg/dL (60-115)
[2023-03-05] MEDS: Lidocaine 4 % Patch ADH..PATCH 1 PATCH TRANSDERMA (17:29)
[2023-03-05] MEDS: traMADoL HCL 50 MG TABLET PO (17:29)
--- NOTE | 2023-03-05 18:24 | PC.NURSE ---
POC 122 pt does not need insulin coverage, however pt states he does not want insulin during his stay; Kourtney CRONIN aware. pt also states needing a cigarette, offered nicotine patch pt refused. pt appears well; eating dinner; family members at bedside. ivf infusing. denies having questions/concerns at this time. bp improved.
--- NOTE | 2023-03-05 19:31 | MHC.EDTECH ---
Upon assuming responsibility for this patient I noticed his orthostatic blood pressure orders were flagged at 3 hours. I explained to the patient I was going to obtain them and explained what I would be doing. Patient states they were already done and refused to participate for them a second time. Jeanie Gibbons is aware. SG
[2023-03-05 19:32] LABS: Glucose, Whole Blood 164 mg/dL (60-115)
--- NOTE | 2023-03-05 20:22 | PC.NURSE ---
report called to [facility] rn
[2023-03-05 20:58] LABS: Glucose, Whole Blood 106 mg/dL (60-115)
[2023-03-05] MEDS: Melatonin 3 MG TABLET 9 MG PO (22:21)
[2023-03-06] VITALS (8 sets, daily range): BP systolic 100–117; BP diastolic 58–79; PULSE 51–89; RESP 18–20; TEMP 36.2–37.1; O2SAT 92–97
[2023-03-06] MEDS: Acetaminophen 325 MG TABLET 650 MG PO ×2 (01:35→07:38)
[2023-03-06] MEDS: Lactated Ringers 1,000 ML 100 ML IVCONT (01:36)
[2023-03-06 06:22] LABS: Hematocrit 37.4 % (42.0-52.0); Hemoglobin 12.5 g/dl (14.0-18.0); Mean Corpuscular HGB Conc 33.4 g/dl (31.0-36.0); Mean Corpuscular Hemoglobin 28.2 pg (27.0-33.0); Mean Corpuscular Volume 84.2 fL (80.0-98.0); Mean Platelet Volume 10.5 fL (9.4-12.4); Platelet Count 227 X10*3/uL (160-400); Red Blood Count 4.44 X10*6/uL (4.60-5.80); Red Cell Distribution Width 13.5 % (11.0-16.0); White Blood Count 5.6 X10*3/uL (4.8-10.8)
[2023-03-06 06:32] LABS: Anion Gap 9 (12-20); Blood Urea Nitrogen 32 mg/dL (9-16); Calcium 8.4 mg/dL (8.4-10.2); Carbon Dioxide 24 mmol/L (22-29); Chloride 103 mmol/L (96-108); Creatinine Clr Calc Pharmacy 88.4; Estimated Glomerular Filt Rate > 60; Glucose Fasting 115 mg/dL (60-99); Potassium 3.3 mmol/L (3.3-5.1); Sodium 133 mmol/L (135-145)
[2023-03-06 07:26] LABS: Glucose, Whole Blood 124 mg/dL (60-115)
[2023-03-06] MEDS: Enoxaparin Sodium 40 MG/0.4 ML SYRINGE SUBCUT (07:37)
[2023-03-06] MEDS: 0.9 % Sodium Chloride Flush 3 ML SYRINGE IVFLUSH (07:38)
--- NOTE | 2023-03-06 08:20 | MHC.CM.PN ---
CM met with Patient at bedside and addressed RAYMUNDO with him, providing Patient with the original and placing a copy on the chart. 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 Home/self care is the goal and CM has initiated and will follow for dc planning. Patient is albina tucker and his PCP is Dr. Knowles.Patient's Ex- is his HCP.
--- NOTE | 2023-03-06 08:21 | P.DS_ITS ---
DS: Providers Provider Date of Service: 03/06/23 Date of admission: 03/05/23 15:57 Primary care physician: Ammon Knowles MD DS: Diagnosis Discharge Diagnosis (1) Diabetes: Status: Acute DS: Summary Hospital Course Hospital Course: from initial hpi: 58M PMH hypertension, obesity, COPD, diabetes presented with syncope.? 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 Patient denies chest pain, fever, chills. hospital course: Patient was admitted for syncope likely due to dehydration and orthostatic hypotension in the setting of hot weather and continued use of antihypertensives. Patient was treated with IV fluids and had no further laquita nts. Telemetry was unremarkable, consistent sinus bradycardia in the 50s. Also noted to have acute kidney injury on admission with creatinine 1.8 due to dehydration, resolved with IV fluids. For obesity weight loss is recommended, however, patient notes unintentional weight loss, age appropriate cancer screening should be pursued. On this note CT chest did show incidental finding of right lung scarring versus atelectasis, this should be compared to previous screening CT scans and if new repeat CT chest in 3 months versus PET scan should be pursued. For COPD smoking cessation is recommended, patient was continued on albuterol but remained stable no hospital. For diabetes his metformin was held and was treated with an insulin sliding scale. Patient is feeling back to baseline will be discharged home. his antihypertensives will be continued to be held he is instructed to monitor his blood pressures at home. Time Spent with Patient Time attestation: Total time managing care of this patient today ____ minutes. Discharge coordination time: Greater than 30 minutes Quality: Safe Use of Opioids Does Pt have an Active Cancer Diagnosis on the Problem List?: No Quality: Stroke Does the patient have a stroke diagnosis?: No Physical Exam Vital Signs: Vital Signs: Last Vital Signs Temp 97.2 F 03/06/23 07:12 Pulse 66 03/06/23 07:58 Resp 20 03/06/23 07:12 BP 105/66 03/06/23 07:58 Pulse Ox 95 03/06/23 07:12 O2 Del Method Room Air 03/06/23 07:12 BMI result Body Mass Index 31.2 General: AO X 3, no acute distress Resp: CTA bilateral, no accessory muscles used CVS: S1,S2,RRR GI: soft, non tender, non distended Neuro: motor grossly intact, alert Psych: appropriate affect, appropriate insight DS: Data Data Completed and Pending Labs on day of discharge: Laboratory Results - last 24 hr 03/05/23 03/05/23 03/05/23 10:43 10:58 10:58 WBC 6.7 RBC 4.96 Hgb 14.0 Hct 42.8 MCV 86.3 MCH 28.2 MCHC 32.7 RDW 13.6 Plt Count 237 MPV 11.0 Immature Gran % (Auto) 0.1 Neut % (Auto) 79.9 H Lymph % (Auto) 8.9 L [place] % (Auto) 9.8 Eos % (Auto) 0.1 Baso % (Auto) 1.2 Lymph # (Auto) 0.6 L [place] # (Auto) 0.7 Eos # (Auto) 0.0 Baso # (Auto) 0.1 Abs Immat Gran (auto) 0.01 Absolute Neuts (auto) 5.4 Absolute Nucleated RBC 0.000 Nucleated RBC % (auto) 0.0 PT INR APTT D-Dimer High Sensitivty Sodium 132 L Potassium 3.7 Chloride 102 Carbon Dioxide 19 L Anion Gap 15 BUN 33 H Creatinine 1.82 H Estim Creat Clear Calc 53.7 Estimated GFR 38 POC Glucose 177 H Random Glucose 178 H Fasting Glucose Calcium 9.0 Magnesium 1.9 Total Bilirubin 0.4 Direct Bilirubin 0.2 AST 29 ALT 29 Alkaline Phosphatase 69 Troponin I High Sens B-Natriuretic Peptide Total Protein 7.2 Albumin 3.9 COVID-19 (JIMI) COVID-19 Clin Com 03/05/23 03/05/23 03/05/23 10:58 10:58 13:08 WBC RBC Hgb Hct MCV MCH MCHC RDW Plt Count MPV Immature Gran % (Auto) Neut % (Auto) Lymph % (Auto) [place] % (Auto) Eos % (Auto) Baso % (Auto) Lymph # (Auto) [place] # (Auto) Eos # (Auto) Baso # (Auto) Abs Immat Gran (auto) Absolute Neuts (auto) Absolute Nucleated RBC Nucleated RBC % (auto) PT INR APTT D-Dimer High Sensitivty Sodium Potassium Chloride Carbon Dioxide Anion Gap BUN Creatinine Estim Creat Clear Calc Estimated GFR POC Glucose Random Glucose Fasting Glucose Calcium Magnesium Total Bilirubin Direct Bilirubin AST ALT Alkaline Phosphatase Troponin I High Sens 8.1 9.1 B-Natriuretic Peptide Total Protein Albumin COVID-19 (JIMI) Negative COVID-19 [employer] Com See Note 03/05/23 03/05/23 03/05/23 13:08 16:22 16:57 WBC RBC Hgb Hct MCV MCH MCHC RDW Plt Count MPV Immature Gran % (Auto) Neut % (Auto) Lymph % (Auto) [place] % (Auto) Eos % (Auto) Baso % (Auto) Lymph # (Auto) [place] # (Auto) Eos # (Auto) Baso # (Auto) Abs Immat Gran (auto) Absolute Neuts (auto) Absolute Nucleated RBC Nucleated RBC % (auto) PT 10.7 INR 0.9 APTT 31.3 D-Dimer High Sensitivty 611 Sodium Potassium Chloride Carbon Dioxide Anion Gap BUN Creatinine Estim Creat Clear Calc Estimated GFR POC Glucose 122 H Random Glucose Fasting Glucose Calcium Magnesium Total Bilirubin Direct Bilirubin AST ALT Alkaline Phosphatase Troponin I High Sens B-Natriuretic Peptide 55 Total Protein Albumin COVID-19 (JIMI) COVID-RABT 03/05/23 03/05/23 03/06/23 19:28 20:52 06:10 WBC 5.6 RBC 4.44 L Hgb 12.5 L Hct 37.4 L MCV 84.2 MCH 28.2 MCHC 33.4 RDW 13.5 Plt Count 227 MPV 10.5 Immature Gran % (Auto) Neut % (Auto) Lymph % (Auto) [place] % (Auto) Eos % (Auto) Baso % (Auto) Lymph # (Auto) [place] # (Auto) Eos # (Auto) Baso # (Auto) Abs Immat Gran (auto) Absolute Neuts (auto) Absolute Nucleated RBC 0.000 Nucleated RBC % (auto) 0.0 PT INR APTT D-Dimer High Sensitivty Sodium Potassium Chloride Carbon Dioxide Anion Gap BUN Creatinine Estim Creat Clear Calc Estimated GFR POC Glucose 164 H 106 Random Glucose Fasting Glucose Calcium Magnesium Total Bilirubin Direct Bilirubin AST ALT Alkaline Phosphatase Troponin I High Sens B-Natriuretic Peptide Total Protein Albumin COVID-19 (JIMI) COVID-RABT 07/21/23 07/21/23 06:10 07:10 WBC RBC Hgb Hct MCV MCH MCHC RDW Plt Count MPV Immature Gran % (Auto) Neut % (Auto) Lymph % (Auto) [place] % (Auto) Eos % (Auto) Baso % (Auto) Lymph # (Auto) [place] # (Auto) Eos # (Auto) Baso # (Auto) Abs Immat Gran (auto) Absolute Neuts (auto) Absolute Nucleated RBC Nucleated RBC % (auto) PT INR APTT D-Dimer High Sensitivty Sodium 133 L Potassium 3.3 Chloride 103 Carbon Dioxide 24 Anion Gap 9 L BUN 32 H Creatinine 1.11 Estim Creat Clear Calc 88.4 Estimated GFR > 60 POC Glucose 124 H Random Glucose Fasting Glucose 115 H Calcium 8.4 D Magnesium Total Bilirubin Direct Bilirubin AST ALT Alkaline Phosphatase Troponin I High Sens B-Natriuretic Peptide Total Protein Albumin COVID-19 (JIMI) COVID-19 Clin Com Discharge Plan Discharge Anticipated Discharge Date/Time: 03/06/23 08:18 Patient Disposition: Home, Self-Care Discharge Diagnosis: syncope, hypotension Referrals: Ammon Knowles MD [Primary Care Provider] - 1 Week Discharge Medications: Continued albuterol sulfate 90 mcg/actuation HFA aerosol inhaler 2 puff inhalation Q4H PRN (Reason: Shortness Of Breath Or Wheezing) fluticasone propionate 50 mcg/actuation spray,suspension 1 spray intranasal DAILY PRN (Reason: Allergy Symptoms) metformin 500 mg tablet extended release 24 hr 1,000 mg PO BID melatonin 10 mg Tablet 10 mg PO BEDTIME Discontinued lisinopril 20 mg tablet 20 mg PO DAILY@1700 chlorthalidone 25 mg tablet 25 mg PO DAILY amlodipine 5 mg tablet 5 mg PO DAILY@1700 Discharge Orders: Discharge Order (Routine); Ordered 03/06/23 Ordered By: Frandy Em Diet: Advance to usual diet Activity on Discharge: As tolerated Stand Alone Forms: Patient Portal Discharge page Care Plan Goals: prevent syncope Health Concerns: syncope from hypotension, spot on ct chest, unintentional weight loss Plan of Treatment: stop blood pressure meds for now, monitor your blood pressure 2-3 times per day and bring results to next pcp appointment. compare CT chest to previous screening chest cts. monitor weight loss, pursue age appropriate cancer screening. Assessment: see above
--- NOTE | 2023-03-06 08:25 | MHC.CM.PN ---
Patient has been medically cleared for dc to home today/self care.
== END 2023-03-06 11:05 | disposition home or self-care (01) ==
LOC: HO.ED 11:52 → HO.EDOVER 16:08 → HO.IMC 19:50
PROVIDERS: Physician Assistant Medical; Admitting Provider Internal Medicine; Emergency Provider Emergency Medicine; PCP Internal Medicine; Visit Provider Internal Medicine
DX: I95.1 Orthostatic hypotension (principal); E11.9 Type 2 diabetes mellitus without complications; J44.9 Chronic obstructive pulmonary disease, unspecified; Z91.81 History of falling; R10.9 Unspecified abdominal pain; R07.9 Chest pain, unspecified; R91.8 Other nonspecific abnormal finding of lung field; E66.9 Obesity, unspecified; Z68.31 Body mass index [BMI] 31.0-31.9, adult; Z79.899 Other long term (current) drug therapy; Z20.822 Contact with and (suspected) exposure to COVID-19
CPT/HCPCS: 36415; 70450; 71046; 71250; 74176; 80048; 80076; 82947; 83735; 83880; 84484; 85025; 85027; 85379; 85610; 85730; 87635; 93005; 96360; 96361; 96372; 99222; 99285; J1650

== ENCOUNTER → 2023-03-05 10:48 | Outpatient (BNV) | payer OTHER, SELFPAY | PROVIDERS: Admitting Provider Internal Medicine; Emergency Provider Emergency Medicine; PCP Internal Medicine; Visit Provider Internal Medicine Cardiovascular Disease | DX: E11.9 Type 2 diabetes mellitus without complications (principal) | CPT/HCPCS: 93010 ==

== ENCOUNTER → 2023-03-05 11:01 | Outpatient (BNV) | payer OTHER, SELFPAY | PROVIDERS: Emergency Provider Emergency Medicine; PCP Internal Medicine; Visit Provider Internal Medicine | DX: E11.9 Type 2 diabetes mellitus without complications (principal) | CPT/HCPCS: 99223; 99239 ==

== ENCOUNTER 2023-03-17 16:29 | Emergency (ER) | payer OTHER, SELFPAY ==
--- NOTE | ~2023-03-17 | CT_ITS ---
EXAMINATION: CT ANGIOGRAM OF THE CHEST WITH AND WITHOUT CONTRAST (CT PULMONARY ANGIOGRAM FOR PE) CLINICAL INFORMATION: Shortness of breath, chest pain, positive d-dimer. COMPARISON: CT chest 03/05/2023. TECHNIQUE: Prior to contrast administration, noncontrast localization images were obtained. Subsequently, multidetector volumetric imaging was performed from the thoracic inlet to below the diaphragms following the administration of 65 mL Omnipaque 350 intravenous contrast. No contrast reaction reported Sagittal, coronal, and MIP oblique sagittal reformatted images were obtained on the CT workstation, uploaded to PACS, and reviewed. This CT examination was performed using dose optimization techniques as appropriate, variously including the following: *Automated exposure control *Adjustment of mA and/or kV according to patient size (this includes techniques or standardized protocols for targeted exams where dose is matched to indication/reason for exam; i.e. extremities or head) *Use of iterative reconstruction technique Total exam dose-length product 411 mGy-cm FINDINGS: QUALITY OF STUDY/CONTRAST BOLUS: Satisfactory. PULMONARY ARTERIES: No pulmonary emboli. THORACIC AORTA: No aneurysm. LUNG: Mildly increased bronchial wall thickening and mucus plugging as well as a few new sub-3 mm pulmonary nodules compared to recent CT chest. Stable predominantly platelike opacities in the right middle lobe and right lower lobe. Redemonstration of intrabronchial filling defects along the right bronchus intermedius. Central airways are patent. PLEURA: A slightly increased small right-sided pleural effusion. MEDIASTINUM: Normal heart size. No pericardial effusion. Increased subcarinal lymphadenopathy measuring 1.2 cm short axis previously 0.9 cm.. No evidence of septal bowing or right heart strain. Enlarged heterogeneous thyroid gland. CORONARY ARTERY CALCIFICATION: Coronary artery calcifications are noted. CHEST WALL/AXILLA: No axillary or internal mammary lymphadenopathy. OSSEOUS STRUCTURES: Kyphotic thoracic spine with multilevel degenerative changes. UPPER ABDOMEN: Decreased attenuation of liver parenchyma suggesting hepatic steatosis. Hepatomegaly. Unchanged left adrenal nodules measuring 1.5 and 1.2 cm, homogeneous in attenuation, less than 10 Hounsfield units, most suggestive of adenomas, for which no imaging follow up is recommended. Stable periportal lymphadenopathy. No reflux of contrast into the hepatic veins to suggest elevated right heart pressures. CT/CT angio chest PE protocol IMPRESSION: 1. No evidence of pulmonary embolism. 2. Mildly increased bronchial wall thickening, mucus plugging and a few new sub-3 mm pulmonary nodules compared to recent CT chest. Findings are suggestive of an atypical infectious/inflammatory process with involvement of the small airways. A short-term follow-up chest CT is recommended. 3. Again noted filling defects within the right bronchus intermedius that could be associated with mucus secretions or aspirated material. Correlation with bronchoscopy could be obtained as clinically indicated. 4. Slightly increased small right-sided pleural effusion. 5. Increased subcarinal lymphadenopathy, possibly reactive. As above, a short-term follow-up chest CT is recommended. 6. Hepatic steatosis and hepatomegaly. 7. Enlarged heterogeneous thyroid gland. Based on the recommendations of the ACR Incidental Thyroid Findings Committee (JACR 2015 Sep; 12(2):143-50), further evaluation by thyroid ultrasound is recommended for a heterogeneously enlarged thyroid gland in patients that do not have limited life expectancy or significant co-morbidities, unless clinically warranted. VTE: negative
[2023-03-17 17:05] VITALS: BP 141/72; PULSE 73; RESP 18; TEMP 36.2; O2SAT 95; BMI 31.9
--- NOTE | 2023-03-17 17:07 | ECG_ITS ---
Test Reason : chest pain/sob Blood Pressure : / mmHG Vent. Rate : 064 BPM Atrial Rate : 064 BPM P-R Int : 200 ms QRS Dur : 102 ms QT Int : 404 ms P-R-T Axes : 054 050 045 degrees QTc Int : 416 ms Normal sinus rhythm with sinus arrhythmia in a pattern of bigeminy Otherwise normal ECG When compared with ECG of 05-MAR-2023 10:45, No significant change was found Referred By: Elvira Elder Electronically Signed By:JOHN CHEEK
--- NOTE | 2023-03-17 17:07 | ED_ITS ---
HPI - General Adult General Chief complaint: Dyspnea Stated complaint: blood clot in lung? Time Seen by Provider: 03/17/23 19:57 Source: patient Mode of arrival: ambulatory History of Present Illness HPI narrative: 58-year-old male who is referred in by his primary care doctor today for an outpatient D-dimer which was elevated. As per the who is at bedside she states that he has been having dizziness and syncopal episodes and is noted to have been admitted on 03/06. He otherwise states that he had some chest pain today but it is no longer present at this time. Related Data Home Medications Medication Instructions Recorded Confirmed albuterol sulfate 90 mcg/actuation 2 puff inhalation Q4H PRN 03/05/23 03/05/23 aerosol inhaler Shortness Of Breath Or Wheezing fluticasone propionate 50 1 spray intranasal DAILY PRN 03/05/23 03/05/23 mcg/actuation nasal Allergy Symptoms spray,suspension melatonin 10 mg tablet 10 mg PO BEDTIME 03/05/23 03/05/23 metformin 500 mg tablet,extended 1,000 mg PO BID 03/05/23 03/05/23 release 24 hr Previous Rx's Medication Instructions Recorded levofloxacin 500 mg tablet 500 mg PO DAILY #9 tabs 03/17/23 Allergies Allergy/AdvReac Type Severity Reaction Status Date / Time perfume AdvReac Hives Verified 03/05/23 10:39 Review of Systems Review of Systems: Pertinent positives and negatives as stated in [facility] Past Medical History Source: nursing notes reviewed Medical History Asthma Diabetes Social History Social History Alcohol intake: current Alcohol intake frequency: holidays/special occasions only Alcohol type: beer Patient Tobacco Use Status: Current everyday Tobacco user Tobacco use type: Cigarette Cigarette Packs Per Day: 1 Cigarettes Per Day: 20.0 Smoked in Last 30 Days: Yes Second Hand Smoke Exposure: Yes Use of substances other than those prescribed or required for medical reasons: No Advance Directives: No Advance Directives Information Provided: No service: No Physical Exam ED Vital Signs: Vital Signs - 24 hr 03/17/23 17:05 03/17/23 20:09 Temperature 97.1 F 98.7 F Pulse Rate 73 62 Respiratory Rate 18 18 Blood Pressure 141/72 H 157/70 H Pulse Oximetry 95 99 Oxygen Delivery Method Room Air Room Air BMI result Body Mass Index 31.9 VITAL SIGNS: Reviewed. GENERAL: Well developed, well nourished, in no acute distress. HEAD: Normocephalic/atraumatic EYES: PERRLA, EOMI EARS: Ext canals without abnormality NOSE: Nares patent bilateral OROPHARYNX: no oral lesions noted, posterior pharynx clear NECK: Supple, no adenopathy LUNGS: Normal breath sounds. No adventitious sounds or accessory muscle use. SpO2<99> CARDIOVASCULAR: Regular rate and rhythm without noted murmurs, no JVD or lower extremity edema. ABDOMEN: Soft, non-tender, non-distended with bowel sounds. MUSCULOSKELETAL: No tenderness, deformities, or effusions noted on gross inspection. EXTREMITIES: No cyanosis, clubbing or edema. SKIN: Inspection of the skin reveals no rashes NEUROLOGIC: Alert and oriented x 4. Strength and sensation to light touch were grossly intact x 4. Course Course Course Narrative: RME - 58 y/o male with history of COPD, asthma, DM with recent admission to [facility] in February for recurrent syncope due to dehydration and orthostatic hypotension who presents to the ER from his PCP office for evaluation of elevated DDIMER. He has been having ongoing lightheadedness, SOB and chest pain but no further syncopal episodes. DDIMER 611 here during last admit but no CTA done (had HERB?) VSS in triage. Plan: labs, CTA chest Medications Administered Discontinued Medications Generic Name Dose Route Start Last Admin Trade Name Freq PRN Reason Stop Dose Admin Iohexol 100 ml 03/17/23 20:12 03/17/23 20:13 Iohexol 350 Mg/Ml 100 Ml Infus..Btl IV 03/17/23 20:13 65 ml ONCE ONE Administration Medical Decision Making Medical Decision Making MDM Narrative: 58-year-old male with history and clinical presentation, DDX: Pneumonia, PE, COPD, ACS. I reviewed all investigations and hematologic indices are significant for leukocytosis without left shift there is a stable normocytic anemia likely of chronic disease and no thrombocytopenia. Chemistry indices are negative for electrolyte abnormalities, there is no HERB, troponin is undetectable and liver enzymes are within normal limits. CT for PE protocol negative for PTE however appears to be consistent with bronchiectasis and with leukocytosis and patient complaint of chest discomfort will initiate antibiotic therapy. Initial dose of antibiotics given here in the emergency room. All results and findings discussed with him at bedside. Differential Diagnosis Differential Diagnoses: The differential diagnosis associated with the presentation includes Please see the discussion above Admission/Observation Consideration of admission/observation: Escalation of care including admission/observation considered Please see the discussion above Lab Data MDM Lab Attestation statement: I reviewed the patient's lab results. Please see the discussion above 03/17/23 17:23 03/17/23 17:23 Labs: Lab Results 03/17/23 03/17/23 03/17/23 Range/Units 17:23 17: 17: WBC 13.2 H (4.8-10.8) X10*3/uL RBC 4.25 L (4.60-5.80) X10*6/uL Hgb 11.9 L (14.0-18.0) g/dl Hct 36.3 L (42.0-52.0) % MCV 85.4 (80.0-98.0) fL MCH 28.0 (27.0-33.0) pg MCHC 32.8 (31.0-36.0) g/dl RDW 13.6 (11.0-16.0) % Plt Count 389 D (160-400) X10*3/uL MPV 9.7 (9.4-12.4) fL Immature Gran % (Auto) 0.5 H (0.0-0.4) % Neut % (Auto) 70.0 (45-73) % Lymph % (Auto) 18.2 L (20-40) % Jack % (Auto) 6.3 (2-11) % Eos % (Auto) 3.8 (0-4) % Baso % (Auto) 1.2 (0-2) % Lymph # (Auto) 2.4 (1.2-4.9) X10*3/uL Jack # (Auto) 0.8 (0.1-1.2) X10*3/uL Eos # (Auto) 0.5 H (0.0-0.4) X10*3/uL Baso # (Auto) 0.2 (0.0-0.2) X10*3/uL Abs Immat Gran (auto) 0.07 H (0.00-0.03) X10*3/uL Absolute Neuts (auto) 9.2 H (2.0-8.3) x10*3/uL Absolute Nucleated RBC 0.000 (0.0-0.012) X10*3/uL Nucleated RBC % (auto) 0.0 (0.0-0.2) /100WBC Sodium 141 (135-145) mmol/L Potassium 3.9 (3.3-5.1) mmol/L Chloride 108 (96-108) mmol/L Carbon Dioxide 22 (22-29) mmol/L Anion Gap 15 (12-20) BUN 18 H (9-16) mg/dL Creatinine 0.94 (0.5-1.4) mg/dL Estim Creat Clear Calc 105.4 Estimated GFR > 60 Random Glucose 107 (60-115) mg/dL Calcium 8.8 (8.4-10.2) mg/dL Magnesium 2.0 (1.6-2.6) mg/dL Total Bilirubin 0.3 (0.0-1.0) mg/dL Direct Bilirubin 0.2 (0.0-0.5) mg/dL AST 21 (5-37) U/L ALT 17 (0-40) U/L Alkaline Phosphatase 74 (39-117) U/L Troponin I High Sens < 2.7 D (<3.5-35.0) ng/L Total Protein 6.8 (6.5-8.0) g/dL Albumin 3.6 (3.5-5.0) g/dL Independent Interpretation I performed an independent interpretation of an: EKG Interpretation: Normal sinus rhythm, HR -64, no STEMI, OH/QRS/QTC are within normal limits. Chronic Conditions Patient?s care impacted by: Diabetes Discharge Plan Discharge Clinical Impression: Bronchiectasis Patient Disposition: Home, Self-Care Instructions: Bronchiectasis (ED) Additional Instructions: 1. Resume all home medications as prescribed. 2. Complete the entire course of antibiotics as prescribed. 3. Follow-up with your primary care provider. Return to the ER for any worsening symptoms. Prescriptions: New levofloxacin 500 mg tablet 500 mg PO DAILY Qty: 9 0RF No Action albuterol sulfate 90 mcg/actuation HFA aerosol inhaler 2 puff inhalation Q4H PRN (Reason: Shortness Of Breath Or Wheezing) fluticasone propionate 50 mcg/actuation spray,suspension 1 spray intranasal DAILY PRN (Reason: Allergy Symptoms) metformin 500 mg tablet extended release 24 hr 1,000 mg PO BID melatonin 10 mg Tablet 10 mg PO BEDTIME
[2023-03-17 17:28] LABS: MANUAL DIFF FLAG NO
[2023-03-17 17:30] LABS: Basophils Absolute Auto 0.2 X10*3/uL (0.0-0.2); Basophils Percent Auto 1.2 % (0-2); Eosinophils Absolute Auto 0.5 X10*3/uL (0.0-0.4); Eosinophils Percent Auto 3.8 % (0-4); Hematocrit 36.3 % (42.0-52.0); Hemoglobin 11.9 g/dl (14.0-18.0); Imm Gran Abs Auto 0.07 X10*3/uL (0.00-0.03); Imm Gran Pct Auto 0.5 % (0.0-0.4); Lymphocytes Absolute Auto 2.4 X10*3/uL (1.2-4.9); Lymphocytes Percent Auto 18.2 % (20-40); Mean Corpuscular HGB Conc 32.8 g/dl (31.0-36.0); Mean Corpuscular Volume 85.4 fL (80.0-98.0); Mean Platelet Volume 9.7 fL (9.4-12.4); Monocytes Absolute Auto 0.8 X10*3/uL (0.1-1.2); Monocytes Percent Auto 6.3 % (2-11); Neutrophils Absolute Auto 9.2 x10*3/uL (2.0-8.3); Platelet Count 389 X10*3/uL (160-400); Red Blood Count 4.25 X10*6/uL (4.60-5.80); Red Cell Distribution Width 13.6 % (11.0-16.0); White Blood Count 13.2 X10*3/uL (4.8-10.8)
[2023-03-17 17:47] LABS: Alanine Aminotransferase 17 U/L (0-40); Albumin Level 3.6 g/dL (3.5-5.0); Alkaline Phosphatase 74 U/L (39-117); Anion Gap 15 (12-20); Aspartate Amino Transferase 21 U/L (5-37); Bilirubin Direct 0.2 mg/dL (0.0-0.5); Bilirubin Total 0.3 mg/dL (0.0-1.0); Blood Urea Nitrogen 18 mg/dL (9-16); Calcium 8.8 mg/dL (8.4-10.2); Carbon Dioxide 22 mmol/L (22-29); Chloride 108 mmol/L (96-108); Creatinine Clr Calc Pharmacy 105.4; Estimated Glomerular Filt Rate > 60; Glucose Random 107 mg/dL (60-115); Potassium 3.9 mmol/L (3.3-5.1); Sodium 141 mmol/L (135-145); Total Protein 6.8 g/dL (6.5-8.0)
[2023-03-17 17:55] LABS: Troponin-I High Sensitivity < 2.7 ng/L (<3.5-35.0)
[2023-03-17 20:09] VITALS: BP 157/70; PULSE 62; RESP 18; TEMP 37.1; O2SAT 99
[2023-03-17] MEDS: iohexoL 350 MG/ML 100 ML INFUS..BTL IV (20:13)
--- NOTE | 2023-03-17 21:22 | PC.NURSE ---
Pt A&Ox4, pt denies CP, and SOB leydi. CP and SOB are intermittent, with exertion. Pt has a productive cough with white sputum. Lung sounds diminished. Pt reports smoking cigarettes. Pt reported that he stopped his BP medications, per PCP. Pt is anxiously awaiting results and discharge. Provider aware.
[2023-03-17] MEDS: levoFLOXacin 500 MG TABLET PO (22:16)
--- NOTE | 2023-03-17 22:20 | PC.NURSE ---
Pt's provided health care proxy information to be scanned into system.
== END 2023-03-17 22:22 | disposition home or self-care (01) ==
PROVIDERS: Physician Assistant; Emergency Provider Student in an Organized Health Care Education/Training Program
DX: J47.9 Bronchiectasis, uncomplicated (principal); E11.9 Type 2 diabetes mellitus without complications; F17.210 Nicotine dependence, cigarettes, uncomplicated; J45.909 Unspecified asthma, uncomplicated; Z79.84 Long term (current) use of oral hypoglycemic drugs; Z79.899 Other long term (current) drug therapy
CPT/HCPCS: 36415; 71275; 80048; 80076; 83735; 84484; 85025; 93005; 99284; 99285; Q9967

== ENCOUNTER → 2023-03-17 17:07 | Outpatient (BNV) | payer OTHER, SELFPAY | PROVIDERS: Emergency Provider Student in an Organized Health Care Education/Training Program; Visit Provider Internal Medicine | DX: I49.9 Cardiac arrhythmia, unspecified (principal) | CPT/HCPCS: 93010 ==